=== PATIENT | female | born 1940 | race African-American/Black ===

== ENCOUNTER 2019-01-22 07:07 | Emergency (ER) | payer MEDICARE, OTHER ==
[~2019-01-22] VITALS: Ht 165.1 cm; Wt 100.0 kg
[2019-01-22] MEDS ORDERED: IPRATROPIUM (NEB) 0.5 MG/2.5 ML AMP INH STA (07:17)
[2019-01-22] MEDS ORDERED: CEFEPIME 2GM/50 ML (PMX) 50 ML IVPB STA (07:17)
[2019-01-22] MEDS ORDERED: ALBUTEROL 0.5% (NEB) 2.5 MG/0.5 ML AMP INH STA ×2 (07:17→09:35)
[2019-01-22] MEDS ORDERED: VANCOMYCIN 1 GM (PMX) 250 ML IVPB ONE (07:30)
[2019-01-22] MEDS ORDERED: SOD CHLORIDE 0.9% 1,000 ML IV STA (07:52)
[2019-01-22 08:29] VITALS: BP 71/52; Ht 165.1 cm; Wt 100.0 kg
[2019-01-22 08:54] VITALS: PULSE 80
[2019-01-22] MEDS ORDERED: MIDAZOLAM (DRIP) 50 mg/50 mL 50 ML IV STA (09:11)
[2019-01-22] MEDS ORDERED: ETOMIDATE 20 MG INJ IV ONE (09:30)
[2019-01-22] MEDS ORDERED: SUCCINYLCHOLINE CHLORIDE 100 MG/5 ML SYG IV ONE (09:30)
[2019-01-22] MEDS ORDERED: SODIUM POLYSTYRENE 15 GM KIT (POWDER + SORBITOL) PO STA (09:35)
[2019-01-22] MEDS ORDERED: CA CHLORIDE 10% 10 ML SYRINGE IV STA (09:35)
[2019-01-22] MEDS ORDERED: NA BICARBONATE 8.4% 50 ML SYG IV STA (09:35)
[2019-01-22] MEDS ORDERED: AMIN30LI5 PO (09:38)
[2019-01-22] MEDS ORDERED: AMIN887L6 PO (09:38)
[2019-01-22] MEDS ORDERED: LEVO75TA65 PO (09:39)
[2019-01-22] MEDS ORDERED: MELA3TAB17 PO (09:40)
[2019-01-22] MEDS ORDERED: [UNRECOGNIZED DRUG - CODE] PO (09:41)
[2019-01-22] MEDS ORDERED: ATOR20TA38 PO (09:41)
[2019-01-22] MEDS ORDERED: TRAM50TA PO ×2 (09:43→10:10)
[2019-01-22] MEDS ORDERED: CARV3.1260 PO (10:02)
[2019-01-22] MEDS ORDERED: FLUT16SP17 NASAL (10:03)
[2019-01-22] MEDS ORDERED: LACT20SO2 PO (10:03)
[2019-01-22] MEDS ORDERED: FURO-109 PO (10:04)
[2019-01-22] MEDS ORDERED: LIDO700A29 TP (10:06)
[2019-01-22] MEDS ORDERED: LINA5TAB PO (10:07)
[2019-01-22] MEDS ORDERED: GABA100C14 PO (10:08)
[2019-01-22] MEDS ORDERED: PANT40TA3 PO (10:08)
[2019-01-22] MEDS ORDERED: MIDO5TAB PO (10:09)
[2019-01-22] MEDS ORDERED: FLUD0.1T10 PO (10:11)
[2019-01-22] MEDS ORDERED: SEVE2.4P3 PO (10:12)
[2019-01-22 10:16] VITALS: RESP 16
[2019-01-22] MEDS ORDERED: NORepinephrine 8MG/250 ML (PMX 250 ML ONE (10:18)
[2019-01-22] MEDS ORDERED: MIRT15TA5 PO (10:25)
[2019-01-22] MEDS ORDERED: GLYB2.5T2 PO (10:27)
[2019-01-22] MEDS ORDERED: MIDO10TA PO (10:28)
[2019-01-22] MEDS ORDERED: NOVO3I SC ×2 (10:36→11:09)
--- NOTE | 2019-01-22 11:35 | ERD ---
ER Documentation Chief Complaint Chief Complaint PtJemma FUENTES from SNF, ALOC, SOB with O2 sat in 80s in usp. HPI This is a 78-year-old female with a history of end-stage renal disease on hemodialysis who presented to the emergency department from [facility]. The patient was brought by EMS from the [facility] facility with changes in her mental status. Nursing staff indicated the patient appeared less responsive. It is unknown when the patient's last known normal time was. Nursing staff indicated the patient appeared to be experiencing shortness of breath. EMS indicated that the patient was hypoxic when they arrived at roughly 80%. It is unknown which days the patient receives dialysis or when her last dialysis session was. The patient is a full code and also has a known history of COPD coronary artery disease paroxysmal atrial fibrillation and AICD pacemaker. No further history is available. EMS administered supplemental oxygen with a nonrebreather and her pulse ox improved to 90%. ROS All systems reviewed and are negative except as per history of present illness. Medications Home Meds Reported Medications Insulin Aspart* (Novolog Insulin Pen*) 100 Unit/Ml Soln, 0 SC SUN,MON,WED,FRI, EA WITH MEALS AND AT BEDTIME 70-150 = 0 UNITS 151-200 = 1 UNIT 201-250 = 2 UNITS 251-300 = 3 UNITS 301-350 = 4 UNITS 351-400 = 6 UNITS IF OVER 400 GIVE 6 UNITS AND CALL MD IF UNDER 70 CALL 01/22/19 Insulin Aspart* (Novolog Insulin Pen*) 100 Unit/Ml Soln, 0 SC TUE,ROSSY,SAT, EA WITH MEALS AND AT BEDTIME 70-140 = 0 UNITS 141-180 = 1 UNIT 181-240 = 2 UNIT 241-300 = 3 UNITS 301-350 = 4 UNITS 351-400 = 6 UNITS IF OVER 400 GIVE 6 UNITS AND CALL MD IF UNDER 70 CALL 01/22/19 Midodrine* (Midodrine*) 10 Mg Tablet, 10 MG PO TIDM A, TAB 01/22/19 Glyburide* (Glyburide*) 2.5 Mg Tablet, 2.5 MG PO DAILY, #30 TAB 01/22/19 Mirtazapine* (Mirtazapine*) 15 Mg Tablet, 15 MG PO HS, TAB 01/22/19 Sevelamer Carbonate* (Renvela*) 2.4 Gm Powd.pack, 2.4 GM PO WITH MEALS, PACKET 7/16/19 Fludrocortisone* (Fludrocortisone*) 0.1 Mg Tablet, 0.1 MG PO QID, TAB 01/22/19 Tramadol Hcl* (Ultram*) 50 Mg Tablet, 50 MG PO TID PRN for PAIN, TAB 01/22/19 Gabapentin* (Gabapentin*) 100 Mg Capsule, 100 MG PO BID, #90 CAP 01/22/19 Pantoprazole* (Protonix*) 40 Mg Tablet.dr, 40 MG PO DAILY, TAB MON,,Mon01/22/19 Linagliptin (TRADJENTA) 5 Mg Tablet, 5 MG PO DAILY, TAB 01/22/19 Lidocaine (Lidoderm) 1 Each Adh..patch, 1 EACH TP DAILY ON AT 9AM OFF AT 9PM 01/22/19 Furosemide* (Lasix*) 40 Mg Tablet, 40 MG PO DAILY, TAB 01/22/19 Lactulose* (Lactulose*) 20 Gm/30 Ml Solution, 20 GM PO BID, ML 01/22/19 Fluticasone Propionate* (Fluticasone Propionate* Nasal) 50 Mcg/Rawlings - 16 Gm Rawlings.susp, 2 SPRAYS NASAL DAILY, #1 BOTTLE TO EACH NOSTRIL 01/22/19 Carvedilol* (Carvedilol*) 3.125 Mg Tablet, 3.125 MG PO BID, #60 TAB 01/22/19 Atorvastatin Calcium* (Atorvastatin Calcium*) 20 Mg Tablet, 20 MG PO QHS, #30 TAB 01/22/19 Nut.tx.impaired Renal Fxn,Soy (Novasource Renal 2 Antione) 237 Ml Liquid, 237 ML PO WITH LUNCH 01/22/19 Melatonin (Melatonin) 3 Mg Tablet.sa, 3 MG PO HS, TAB.SA 01/22/19 Levothyroxine Sodium* (Levoxyl*) 75 Mcg Tablet, 75 MCG PO BEFORE BREAKFAST, #30 TAB 01/22/19 Amino Acids/Protein Hydrolys (Pro-Stat Awc Liquid) 30 Ml Liquid, 30 ML PO DAILY MON,,Mon01/22/19 Amino Acids/Protein Hydrolys (PRO-STAT AWC LIQUID) 887 Ml Liquid, 30 ML PO BID SUN,MON,WED,FRI 01/22/19 Discontinued Reported Medications Midodrine* (Midodrine*) 5 Mg Tablet, 5 MG PO TIDM A, TAB 01/22/19 Tramadol Hcl* (Ultram*) 50 Mg Tablet, 50 MG PO TID PRN for PAIN, TAB SUN,MOM,MON,Mon01/22/19 Allergies Allergies: Coded Allergies: acyclovir (Verified Allergy, Unknown, 01/22/19) capsaicin (Verified Allergy, Unknown, 01/22/19) hydromorphone (Verified Allergy, Unknown, 01/22/19) levofloxacin (Verified Allergy, Unknown, 01/22/19) PMhx/Soc History of Surgery: Yes (AV shunt) Hx Neurological Disorder: No Hx Respiratory Disorders: No Hx Cardiac Disorders: Yes (HTN, pacemaker) Hx Psychiatric Problems: No Hx Miscellaneous Medical Probl: Yes (Dialysis pt.(3x/week)) Hx Alcohol Use: No Hx Substance Use: No Hx Tobacco Use: No Smoking Status: Never smoker Physical Exam Vitals Vital Signs Date Temp Pulse Resp B/P (MAP) Pulse Ox O2 O2 Flow FiO2 Time Delivery Rate 01/22/19 81 16 75 100 10:16 01/22/19 80 16 100 100 09:41 01/22/19 80 100 100 08:54 01/22/19 96.9 80 26 71/52 (58) 86 08:29 01/22/19 80 100 100 07:24 Physical Exam Constitutional:Well-developed. Well-nourished. Patient in severe respiratory distress HEENT:Normocephalic. Atraumatic.Pupils were equal round reactive to light. Moist mucous membranes.No tonsillar exudates. Neck: No nuchal rigidity. No lymphadenopathy. No posterior cervical spine te nderness or step-offs. Respiratory: Patient using accessory muscles of respiration. Wheezing heard on the right side with no breath sounds present on left hemithorax. Tachypneic. Unable to speak due to severe respiratory distress Cardiovascular: Regular rate regular rhythm.No murmurs. No rubs were appreciated.S1, S2 normal. Distal pulses are palpable 2+ bilaterally. GI: Abdomen was soft. Nontender. Non Distended. No pulsatile abdominal masses or bruits. No rebound. No guarding. Bowel sounds were present and normal. Muscle skeletal: Full range of motion of bilateral upper extremities. Patient had no movement of the lower extremities. Skin: No petechia, no purpura. No lesions on the palms or the soles of the feet. No maculopapular rash. NEURO: Patient was unable to speak due to severe respiratory distress. Patient was drowsy but easily arousable. Did not follow verbal command. Did withdraw to pain. Result Diagram: 01/22/19 0846 01/22/19 0846 Results 24 hrs Laboratory Tests Test 01/22/19 07:17 01/22/19 08:46 01/22/19 08:53 01/22/19 10:11 Blood Gas Blood arterial Specimen Source Arterial Blood 01/22/2019 8:00:3 Date Drawn 2 AM Arterial Blood 7.128 pH (Temp corrected) Arterial Blood 77.7 mmhg pCO2 (Temp correct) Arterial Blood 237.2 mmHG pO2 (Temp corrected) Arterial Blood 25.2 mmol/L HCO3 Arterial Blood -4.2 mmol/L Base Excess Arterial Blood 99.2 mmHG Oxygen Saturatio n Onur Test ACCEPTAB Arterial Blood Left Radial Gas Puncture Site Arterial 1.1 % Blood Carboxyhem oglobin Arterial Blood 0.3 % Methemoglobin Blood Gas A-a O2 398.1 mmHg Differential Oxyhemoglobin 97.8 % Percent Blood Gas 37.0 C Temperature Blood Gas 18.0 Respiration Rate Blood Gas Actual 23 Respiration Rate Blood Gas MASK - BIPAP Modality FiO2 100.0 % Blood Gas 10 Pressure Support Blood Gas 15/5 IPAP/EPAP Ratio Blood Gas DR MAZA Critical Value Read Back Blood Gas TM Notified Whom Blood Gas 01/22/2019 8:08:2 Notified Time 8 AM White Blood 10.9 10^3/ul Count Red Blood Count 2.35 10^6/ul Hemoglobin 6.8 g/dl Hematocrit 23.6 % Mean Corpuscular 100.4 fl Volume Mean Corpuscular 28.9 pg Hemoglobin Mean Corpuscular 28.8 g/dl Hemoglobin Jazmín nt Red Cell 16.7 % Distribution Width Platelet Count 210 10^3/UL Mean Platelet 10.8 fl Volume Immature 0.600 % Granulocytes % Neutrophils % 88.2 % Segmented 86 % Neutrophils % (Manual) Band Neutrophils 3 % % (Manual) Lymphocytes % 5.5 % Lymphocytes % 5 % (Manual) Monocytes % 5.4 % Monocytes % 5 % (Manual) Eosinophils % 0.1 % Basophils % 0.2 % Myelocytes % 1 % (Manual) Nucleated Red 0.0 /100WBC Blood Cells % Immature 0.060 10^3/ul Granulocytes # Neutrophils # 9.6 10^3/ul Neutrophils # 9.4 10^3/ul (Manual) Band Neutrophils 0.3 10^3/ul # Lymphocytes 0.5 10^3/ul (Manual) Lymphocytes # 0.6 10^3/ul Monocytes # 0.6 10^3/ul Monocytes # 0.5 10^3/ul (Manual) Eosinophils # 0.0 10^3/ul Basophils # 0.0 10^3/ul Myelocytes # 0.1 10^3/ul Nucleated Red 0.0 10^3/ul Blood Cells # Pathologist YES Review (Hematolo gy) Platelet NORMAL Estimate Giant Platelets 1 % Polychromasia 2+ Poikilocytosis 1+ Anisocytosis 1+ Prothrombin Time 14.0 Sec Prothrombin Time 1.1 Ratio INR 1.07 International Normalized Ratio Activated 25.5 Sec Partial Thrombop last Time Sodium Level 134 mmol/L Potassium Level 7.8 mmol/L Chloride Level 91 mmol/L Carbon Dioxide 23 mmol/L Level Anion Gap 20 Blood Urea 136 mg/dl Nitrogen Creatinine 6.07 mg/dl Est Glomerular mL/min Filtrat Rate mL/min Glucose Level 62 mg/dl Calcium Level 8.7 mg/dl Total Bilirubin 0.2 mg/dl Direct Bilirubin 0.00 mg/dl Indirect 0.2 mg/dl Bilirubin Aspartate Amino 30 IU/L Transf (AST/SGOT ) Alanine 34 IU/L Aminotransferase (ALT/SGPT) Alkaline 96 IU/L Phosphatase Troponin I 0.405 ng/ml Total Protein 6.4 g/dl Albumin 3.4 g/dl Globulin 3.00 g/dl Albumin/Globulin 1.13 Ratio Amylase Level 106 U/L Lipase 95 U/L POC Venous 2.7 mmol/L Lactate Bedside Glucose 46 mg/dL Test 01/22/19 10:33 Bedside Glucose 356 mg/dL Current Medications Medications Dose Sig/Ramiro Start Time Status Last (Trade) Ordered Route PRN Stop Time Admin Dose Reason Admin Cefepime HCl 50 ml @ ONCE STAT 01/22/19 DC 01/22/19 100 mls/hr IVPB 07:17 09:04 01/22/19 07:46 Vancomycin 250 ml @ ONCE ONCE 01/22/19 DC HCl 125 mls/hr IVPB 07:30 01/22/19 09:29 Albuterol 10 mg ONCE STAT 01/22/19 DC (Proventil INH 07:17 0.5% (Neb)) 01/22/19 07:29 Ipratropium 1 mg ONCE STAT 01/22/19 DC [place] INH 07:17 (Atrovent 01/22/19 07:29 0.02% (Neb)) Sodium 1,000 ml @ Q1H STAT 01/22/19 DC 01/22/19 Chloride 1,000 mls/hr IV 07:52 09:04 01/22/19 08:51 Etomidate 20 mg ONCE ONCE 01/22/19 DC (Amidate) IV 09:30 01/22/19 09:31 100 mg ONCE ONCE 01/22/19 DC Succinylcholi IV 09:30 ne Chloride 01/22/19 09:31 (Anectine Syringe) Midazolam 50 ml @ 3 ONCE STAT 01/22/19 HCl mls/hr IV 09:11 01/23/19 01:50 Sodium 30 gm ONCE STAT 01/22/19 DC Polystyrene PO 09:35 Sulfonate 01/22/19 09:36 (Kayexelate 15 Gm Kit (Powder+Sorbi tiffani)) Albuterol 15 mg ONCE STAT 01/22/19 DC (Proventil INH 09:35 0.5% (Neb)) 01/22/19 09:36 Sodium 50 ml ONCE STAT 01/22/19 DC 01/22/19 Bicarbonate IV 09:35 09:44 (Na Bicarb 01/22/19 09:36 8.4% Syg) Calcium 1,000 mg ONCE STAT 01/22/19 DC 01/22/19 Chloride IV 09:35 09:44 (Ca Chloride 01/22/19 09:36 10% Syg) 250 ml @ ud STK-MED 01/22/19 DC Norepinephrin ONCE .ROUTE 10:18 e 01/22/19 10:19 Procedures/MDM The patient presented to the emergency department with an acute and persistent change in their mental status. The differential diagnosis is diverse however reversible causes such as hypoglycemia, opiate overdose, thiamine deficiency were immediately considered. The patient was placed on a net development manager, continuous pulse oximetry and IV access was established. The patients airway was secure however hypoxic events such as anemia, shock, or severe pulmonary disease were all considered as etiologies in this patients presentation. Circulation assessed with good cap refill and did not require fluids or pressure support. Finger stick for rapid glucose determined to be normal at 62. 12 Lead EKG tracing ordered and reviewed by myself showed: Normal sinus rhythm of 81 bpm and no arrhythmia. NH interval normal. QRS duration prolonged due to electronically paced rhythm No ST segment elevation No ST segment depression. No changes consistent with acute ischemia. The patient initially arrived she was in severe respiratory distress. She had immediately been placed on noninvasive mechanical ventilation with a BiPAP and given a continuous nebulizer treatment. The patient had a chest radiograph that was reviewed by myself. The patient had complete opacification of the left hemothorax that was consistent with a large left pleural effusion. I was unable to rule out underlying infiltrate. The patient did have IV access that was established by nursing staff and received a liter bolus of normal saline with gentle hydration as the patient also has a history of end-stage renal disease on hemodialysis. The patient's fistula was present in the right arm but there is no thrill or bruit present. The patient's potassium was elevated at 7.8. Hyperkalemia was treated with nebulizer treatments and amp of bicarbonate amp of calcium chloride and Kayexalate. Lasix was not given as the patient was hypotensive The patient had severe respiratory acidosis seen on the arterial blood gas. The patient did not have improvement of her respiratory distress despite the noninvasive mechanical ventilation at this time the patient was intubated using RSI. Patient was given etomidate for sedation followed by succinylcholine. A 7.50 endotracheal tube was seen in past going through the cords by myself. The patient had good capnometry change x6, equal and symmetrical breath sounds heard bilaterally despite the opacification on the left hemithorax, and condensation was seen within the tube. The patient had severe elevation of BUN and creatinine did require emergent hemodialysis. However nursing staff indicated that the patient at 09 55 became pulseless and was asystole on the monitor. At this time ACLS protocol was fol lowed. The patient did have an episode of ventricular fibrillation. An IO had been placed by myself in the right lower extremity further access. The patient was hypotensive and therefore at this time a central line movement was placed by myself emergently in the right IJ under ultrasound guidance. The patient was critically ill and required central venous access. The patient was unable to consent for this procedure given that this was an emergent process and after was prepped and draped in a sterile fashion. Time out performed and the right internal jugular vein was cannulated using the Seldinger technique after anesthesia administered with 1% lidocaine locally. A triple lumen catheter used. The guidewire was easily thread into the vessel. The guidewire was retrieved, removed and disposed of. All three ports latisha back venous blood and flushed easily. The line was secured in place with 2 simple interrupted sutures and a biostat was applied over the area in inoculation. The patient tolerated the procedure well with no complications. ED Ultrasound: Central line placed by me using concurrent ultrasound guidance. Real time image archived in the medical record confirms vascular anatomy. The patient initially arrived she did meet sepsis criteria. Patient's infectious symptoms have not stabilized and the patient is at risk of rapid decompensation. The patient will be admitted for careful hydration, antibiotic therapy, and infectious source control. Severe Sepsis Assessment: Infectious Source: Pneumonia End organ damage indicated by: Lactate > 2.0 mmol/L Hypotension( SBP < 90 or >40 mmHG drop or MAP < 65) Acute Resp Failure (sat < 92% w/o oxygen) Shelver > 2.0 Severe Sepsis Managment: Blood Cultures X 2 before broad spectrum antibiotics initiated within 3 hours of recognition. 30 ml/kg NS bolus Completed Initial Lactate: 2.6 Repeat Lactate pending Septic Shock Assessment (1 hour post 30 ml/kg fluid bolus): Hypotension (SBP < 90 or 40 mmHg drop, MAP < 65): Yes Lactic acid > 4.0 No Perfusion Reassessment for Septic Shock: Temp 96.9, Pulse 80 RR 26, BP 71/52 Heart Exam: Tachycardic Lung Exam: No Crackles Capillary Refill: Delayed Peripheral Pulses: Radially present Skin: Normal Hypotensive Treatment (not required for isolated lactic acid elevation): Comfort Care: No Central LIne: Yes Vasopressor started: No I considered further perfusion assessment with CVP measurement, SCVO2, bedside ultrasound volume assessment, passive leg raise, trial of further fluid bolus. And preceded with IV fluids. The patient did not receive a 30 cc/kg bolus of normal saline given that the fact that the patient has renal disease and artery appeared to be in fluid overload The patient had repeat Accu-Chek during the ACLS protocol. She was hypoglycemic and an amp of bicarb was given to the patient. The patient did not have return of spontaneous circulation and time of was called at 1023. Critical Care: Time: 100 minutes Treatments/Evaluations: Close monitoring and treatment of unstable vital signs, cardiorespiratory, and neurologic status, while maintaining tight balance of fluid, respiratory, and cardiac interventions. Time does not include performing any of the above billable procedures. Departure Diagnosis: Primary Impression: Altered mental status Altered mental status type: unspecified Qualified Codes: R41.82 - Altered mental status, unspecified Additional Impressions: Respiratory distress Renal failure (ARF), acute on chronic Acute renal failure type: unspecified Chronic kidney disease stage: on chronic dialysis Qualified Codes: N17.9 - Acute kidney failure, unspecified; N18.9 - Chronic kidney disease, unspecified; Z99.2 - Dependence on renal dialysis Hyperkalemia Cardiopulmonary arrest Condition: Serious TIFFANIE MAZA MD Jan 22, 2019 11:21
[2019-01-22] MEDS ORDERED: NA BICARBONATE 8.4% 50 ML SYG ONE (20:00)
[2019-01-22] MEDS ORDERED: DEXTROSE 50% 50 ML SYRINGE ONE (20:00)
[2019-01-22] MEDS ORDERED: EPINEPHrine 10 MCG/1ml (10 ML SYG) IV ONE (20:00)
== END 2019-01-22 13:59 | disposition expired ==
LOC: E/R 07:07
DX: I12.0 Hypertensive chronic kidney disease with stage 5 chronic kidney disease or end stage renal disease (principal); R06.00 Dyspnea, unspecified; N18.6 End stage renal disease; I46.9 Cardiac arrest, cause unspecified; E87.5 Hyperkalemia; E11.22 Type 2 diabetes mellitus with diabetic chronic kidney disease; Z99.2 Dependence on renal dialysis; Z79.4 Long term (current) use of insulin
CPT/HCPCS: 31500; 36556; 36600; 71045; 76937; 80053; 82150; 82803; 82962; 83605; 83690; 84484; 85025; 85610; 85730; 87040; 92950; 93005; 94002; 94660; 96374; 96375; 99285; J0171; J0692; J2250; J3370; J7030